=== PATIENT | female | born 1965 | race Caucasian/White ===

== ENCOUNTER 2020-12-27 15:35 | Emergency (ER) | payer OTHER ==
[~2020-12-27 15:35] MED LIST: COMBIVENT RESPIM4 GM INH; LEVOTHYROXINE75 MCG PO; NORCO 5-325 TA1 EACH PO; VITAMIN D
[2020-12-27 16:44] LABS: BASOPHIL 0.8 % (0-2); EOSINOPHIL 0.6 % (0-5); HCT 48.6 % (37.0-47.0); HGB 15.8 g/dl (12.5-16.0); LYMPHOCYTE 17.1 % (15-48); MCH 30.3 pg (25.0-31.0); MCHC 32.5 g/dL (32.0-36.0); MCV 93.3 fL (78.0-100.0); MONOCYTE 8.1 % (0-12); MPV 10.1 fL (6.0-9.5); NEUTROPHIL 73.1 % (41-80); NRBC 0; PLT 290 K/uL (150-400); RBC 5.21 M/uL (4.20-5.40); RDW 13.9 % (11.5-14.0); WBC 6.3 K/uL (4.0-10.5)
[2020-12-27 18:18] LABS: ACETAMINOPHEN (TYLENOL) < 2.0 ug/mL (10.0-30.0); ALBUMIN 3.7 g/dL (3.4-5.0); ALKALINE PHOSHATASE 78 U/L (46-116); ALT 21 U/L (14-59); AST 15 U/L (15-37); BILIRUBIN - TOTAL 0.2 mg/dL (0.2-1.0); BUN 14 mg/dL (7-18); BUN/CREAT RATIO (CALC) 15.4 RATIO; CHLORIDE 106 mmol/L (98-107); CO2 (BICARBONATE) 28 mmol/L (21-32); CREATININE 0.91 mg/dL (0.51-0.95); GLOBULIN (CALCULATION) 3.5 g/dL; GLUCOSE 127 mg/dL (74-106); TOTAL PROTEIN 7.2 g/dL (6.4-8.2)
[2020-12-27] MEDS ORDERED: ONDANSETRON ODT4 MG PO (18:49)
== END 2020-12-27 19:05 | disposition home or self-care (01) ==
LOC: FER 15:35
PROVIDERS: Emergency Medicine
DX: F41.9 Anxiety disorder, unspecified (principal); U07.1 COVID-19; F17.210 Nicotine dependence, cigarettes, uncomplicated; R42 Dizziness and giddiness; Z88.6 Allergy status to analgesic agent
CPT/HCPCS: 36415; 70450; 71045; 80053; 84484; 85025; 85379; 93005; G0480; U0002